=== PATIENT | female | born 1985 | race Asian ===

== ENCOUNTER 2024-11-04 13:38 | Outpatient (CLI) | payer BC ==
[2024-11-04] MEDS ORDERED: Furosemide 40 MG (4 mL) VIAL ONE (14:44)
== END 2024-11-04 13:39 | disposition home or self-care (01) ==
LOC: NM 13:38
PROVIDERS: ATTEND Urology
DX: N26.1 Atrophy of kidney (terminal) (principal)
CPT/HCPCS: 78708; A4641; A9562; J1940